=== PATIENT | female | born 1925 | race Caucasian/White ===

== ENCOUNTER 2016-10-21 08:59 | Emergency (ER) | payer MEDICARE ==
--- NOTE | 2016-10-21 11:12 | RAD ---
INDICATION: Right shoulder dislocation. COMPARISON: Comparison is made with a prior x-ray study of the same date and [facility]. TECHNIQUE: Grade views of the right shoulder were obtained. FINDINGS: There is anterior subcoracoid dislocation of the humeral head. There is flattening of the superolateral aspect of the humeral head consistent with a Hill-Sachs fracture. There is widening of the acromioclavicular joint. These findings are unchanged from the prior exam. IMPRESSION: 1. ANTERIOR DISLOCATION OF THE HUMERAL HEAD. 2. HILL-SACHS FRACTURE. 3. ACROMIOCLAVICULAR JOINT SEPARATION.
[2016-10-21] MEDS ORDERED: Midazolam* 1 MG/ML 10 ML VIAL (10 MG) IV ONE ×2 (12:46→16:45)
[2016-10-21] MEDS ORDERED: fentaNYL* 50 MCG/ML 2 ML VIAL (100 MCG VIAL) IV SLOW PU ONE (12:46)
[2016-10-21] MEDS ORDERED: Naloxone* 0.4 MG/ML 1 ML VIAL IV PUSH ONE (12:47)
[2016-10-21] MEDS ORDERED: Flumazenil* 0.1 MG/ML 5 ML MDV ONE (13:04)
--- NOTE | 2016-10-21 14:18 | RAD ---
HISTORY: Post reduction COMPARISONS: October 21, 2016 at 9:37 AM VIEWS: 1, right shoulder FINDINGS: BONE DENSITY: There is diffuse osteopenia. BONES: There is no displaced fracture. JOINTS: There is diastasis of the AC joint, stable ALIGNMENT: There is persistent inferior displacement of the right humerus with suspected the glenoid. SOFT TISSUES: Unremarkable. OTHER FINDINGS: None. IMPRESSION: PERSISTENT RIGHT SHOULDER DISLOCATION
--- NOTE | 2016-10-21 14:32 | RAD ---
INDICATION: Postreduction COMPARISON: October 21, 2016 TECHNIQUE: AP and Y were obtained. FINDINGS: There is osteopenia. The shoulder is reduced although it is high riding compatible with a rotator cuff tear. There is AC joint separation. No acute fracture is seen but the sensitivity is diminished in light of the osteopenia. IMPRESSION: SATISFACTORY REDUCTION. AC JOINT SEPARATION. HIGH RIDING SHOULDER COMPATIBLE WITH ROTATOR CUFF TEAR
[2016-10-21 16:22] VITALS: BP 153/68
--- NOTE | 2016-10-21 18:43 | ED ---
Jerica Maier Edward, scribed for Sami Carl MD on 10/21/16 at 1020 . Upper Extremity Pain - HPI Summary HPI Summary: 89 y/o female [place] from [facility] s/p fall this morning. Patient fell out of bed this morning and currently has severe pain in the R shoulder. Denies R elbow pain, neck and head pain. Per [facility] report, patient had a dislocated R shoulder that could not be reduced. SHx ROTATOR CUFF REPAIR R SHOULDER. PMHx arthritis. - History of Current Complaint Stated Complaint: RT SHOULDER COMPLAINT Hx Obtained From: Patient Mechanism Of Injury: Fall From Height Of: - Bed Onset/Duration: Started Hours Ago Timing: Lasting Hours Pain Location: Shoulder - R Associated Signs & Symptoms: Positive: Negative - No neck pain, head pain, or R wrist, elbow and hand pain - Allergies/Home Medications Allergies/Adverse Reactions: Allergies Allergy/AdvReac Type Severity Reaction Status Date / Time Aspartame Allergy Unknown Verified 10/21/16 11:33 Reaction Details Ciprofloxacin [From Cipro] Allergy Unknown Verified 10/21/16 11:33 Reaction Details Codeine Allergy Unknown Verified 10/21/16 11:33 Reaction Details Erythromycin Allergy Unknown Verified 10/21/16 11:33 Reaction Details Metronidazole Allergy Unknown Verified 10/21/16 11:33 Reaction Details Montelukast Allergy Unknown Verified 10/21/16 11:33 Reaction Details Morphine Allergy Unknown Verified 10/21/16 11:33 Reaction Details Nabumetone Allergy Unknown Verified 10/21/16 11:33 Reaction Details Sulfa Antibiotics Allergy Unknown Verified 10/21/16 11:33 Reaction Details Theophylline Allergy Unknown Verified 10/21/16 11:33 Reaction Details PMH/Surg Hx/FS Hx/Imm Hx Previously Healthy: No Endocrine/Hematology History: Reports: Other Endocrine/Hematological Disorders - Hypothyroidism Cardiovascular History: Reports: Hx Angina, Hx Hypertension Musculoskeletal History: Reports: Hx Arthritis, Hx Back Problems - Surgical History Surgery Procedure, Year, and Place: 3 BACK SURGERIES, APPY, HYSTERECTOMY, ROTATOR CUFF REPAIR R SHOULDER, HIATIAL HERNIA REMOVAL, BLADDER MESH INSERTION AND REMOVAL Infectious Disease History: Denies: Traveled Outside the [place] in Last 30 Days - Family History Known Family History: Positive: Other - Brother, father, and mother of cancer - Social History Occupation: Retired Alcohol Use: None Hx Substance Use: No Substance Use Type: Reports: None Hx Tobacco Use: No Smoking Status (MU): Never Smoked Tobacco Review of Systems Constitutional: Negative Eyes: Negative ENT: Negative Cardiovascular: Negative Respiratory: Negative Gastrointestinal: Negative Genitourinary: Negative Positive: Arthralgia - R shoulder pain. No R wrist, hand elbow, neck or head pain. Skin: Negative Neurological: Negative Psychological: Normal All Other Systems Reviewed And Are Negative: Yes Physical Exam - Summary Physical Exam Summary: The patient is well-nourished in mild distress. The skin is warm and dry and skin color reflects adequate perfusion. HEENT: The head is normocephalic and atraumatic. The pupils are equal and reactive. The conjunctivae are clear and without drainage. Nares are patent and without drainage. Mouth reveals moist mucous membranes and the throat is without erythema and exudate. The patient has hearing aids in both ears. Neck is supple with full range of motion and non-tender. There is no neck vein distension. There is no reproducible pain in the neck. Respiratory: Chest is non-tender. Lungs are clear to auscultation and breath sounds are symmetrical and equal. Cardiovascular: Hear is regular rate and rhythm. There is no murmur or rub auscultated. There is no peripheral edema and pulses are symmetrical and equal. Abdomen: The abdomen is soft and non-tender. There are normal bowel sounds heard in all four quadrants and there is no organomegaly palpated. Musculoskeletal: There is no back pain noted. Extremities are non-tender with full range of motion. There is good capillary refill. There is no peripheral edema or calf tenderness elicited. There is no evidence of basal skull fracture. There is no reproducible pain in the hips, R wrist, hand and elbow. There is obvious ecchymosis and possible deformity in the right shoulder. There is pain in the right shoulder. Neurovascular intact in the RUE. Both hips flex. Neurological: Patient is alert and oriented to person, place and time. The patient has symmetrical motor strength in all four extremities. Cranial nerves are grossly intact. Deep tendon reflexes are symmetrical and equal in all four extremities. Psychiatric: The patient has an appropriate affect and does not exhibit any anxiety or depression. Triage Information Reviewed: Yes Vital Signs On Initial Exam: Initial Vitals Temp Pulse Resp BP Pulse Ox 97.3 F 82 18 171/84 100 10/21/16 10:19 10/21/16 10:19 10/21/16 10:19 10/21/16 10:19 10/21/16 10:19 Vital Signs Reviewed: Yes Procedures - Joint Reduction Joint Reduction Site: shoulder (R) Conscious Sedation: Yes Reduction Attempts: 2 - 1st not successful, pending 2nd reduction filmed. 2nd reduction successful. Pre-Procedure NV Exam: Yes Post Joint Reduction Film: joint not reduced Diagnostics - Vital Signs Vital Signs Temp Pulse Resp BP Pulse Ox 10/21/16 16:20 96.8 F 77 16 153/68 10/21/16 10:30 97.1 F 81 22 174/74 99 10/21/16 10:19 97.3 F 82 18 171/84 100 - Laboratory Lab Statement: Any lab studies that have been ordered have been reviewed, and results considered in the medical decision making process. - Radiology SHOULDER XR Xray Interpretation: Positive (See Comments) - 1. ANTERIOR DISLOCATION OF THE HUMERAL HEAD. 2. HILL-SACHS FRACTURE. 3. ACROMIOCLAVICULAR JOINT SEPARATION. Radiology Interpretation Completed By: Radiologist 2nd SHOULDER XR Xray Interpretation: Positive (See Comments) - Persistent right shoulder dislocation Radiology Interpretation Completed By: Radiologist 3rd SHOULDER XR Xray Interpretation: Positive (See Comments) - SATISFACTORY REDUCTION. AC JOINT SEPARATION. HIGH RIDING SHOULDER COMPATIBLE WITH ROTATOR CUFF TEAR Course/Dx - Course Assessment/Plan: The patient was transferred from [facility] for a dislocated shoulder that could not be reduced. Shoulder XR - 1. ANTERIOR DISLOCATION OF THE HUMERAL HEAD. 2. HILL-SACHS FRACTURE. 3. ACROMIOCLAVICULAR JOINT SEPARATION. Shoulder dislocation attempted by Dr. Carl @ 13:30. Reduction attempt unsuccessful. Second attempt pending filmed. During the first reduction attempt, there were skin tears under the arms that were closed with steri-strips. 2nd Shoulder XR showed persistent R shoulder dislocation. Second reduction attempt resulted in satisfactory R shoulder alignment. 3rd shoulder XR showed AC separation and rotator cuff tear (old). Patient will be discharged home w/ R shoulder disloaction w/ reduction and conscious sedation. Patient cannot walk on her own and will be brought home on a wheelchair. Both the patient and her are agreeable with this plan. - Diagnoses Differential Diagnosis/HQI/PQRI: Positive: Fracture (Closed), Other - dislocation Provider Diagnoses: Dislocation of right shoulder joint, Acromioclavicular separation Discharge - Discharge Plan Condition: Stable Disposition: HOME Patient Education Materials: Shoulder Dislocation (ED), Laceration Without Closure (ED) Referrals: Tera Rendon MD [Medical Doctor] - 3 Days (Please follow up in 2-3 days.) Additional Instructions: wear sling until rechecked by Dr. Rendon. Continue with Tramadol as prescribed The documentation as recorded by the Jerica rust Edward accurately reflects the service I personally performed and the decisions made by Siddhartha kaufman Drew, MD.
== END 2016-10-21 16:10 | disposition home or self-care (01) ==
LOC: ED 08:59
DX: S43.109A Unspecified dislocation of unspecified acromioclavicular joint, initial encounter (principal); S43.004A Unspecified dislocation of right shoulder joint, initial encounter; W19.XXXA Unspecified fall, initial encounter; Y93.9 Activity, unspecified; Y92.9 Unspecified place or not applicable
CPT/HCPCS: 96374; 96375; 99283; J2250; J2310; J3010